=== PATIENT | female | born 1990 | race Caucasian/White ===

== ENCOUNTER → 2016-10-08 13:38 | Observation (INO) ==
[2016-10-08 13:07] LABS: Bilirubin,Urine Negative (Negative); Blood,Urine Negative (Negative); Clarity,Urine Cloudy (Clear); Color,Urine Yellow (Yellow); Glucose,Urine (UA) Normal (Normal); Ketones,Urine Negative (Negative); Leukocyte Esterase,Urine Moderate (Negative); Nitrite,Urine Negative (Negative); Protein,Urine Negative (Neg-Trace); Specific Gravity,Urine 1.016 (1.010-1.025); Urobilinogen,Urine Normal (Normal)
[2016-10-08 13:09] LABS: Bacteria,Urine Few per hpf (None-Few); Hyaline Casts,Urine None Seen per lpf (None-Few); RBC,Urine 0-3 per hpf (0-3); WBC,Urine 15-30 per hpf (0-3)
[2016-10-08 13:27] LABS: Squamous Epithelial Cell,Urine Moderate per lpf (None-Few)
--- NOTE | 2016-10-08 13:32 | Discharge Summary ---
Date of Encounter: 10/08/16 Time of Encounter: 13:32 - Discharge Diagnosis (1) 27 weeks gestation of Priority: Primary Status: Acute Comments: admitted for observation (2) Pain of round ligament affecting , antepartum Priority: Secondary Status: Acute Comments: comfort measures discussed (3) NST (non-stress test) reactive on surveillance Priority: Secondary Status: Acute Comments: baseline 145 bpm moderate variability +15x15 accels no decels noted. No contractions - Discharge Medications Home Medications: Vit Calc,Iron,Folic [ Vitamins] 1 tab PO DAILY 10/08/16 [ History] Allergies/Adverse Reactions: Allergies No Known Allergies Allergy (Verified 10/08/16 12:44) Data Procedures and tests throughout hospitalization: Laboratory Tests 10/08/16 12:51 Urine Color Yellow Urine Clarity Cloudy A Urine pH 6.0 Ur Specific [place] 1.016 Urine Protein Negative Urine Glucose (UA) Normal Urine Ketones Negative Urine Blood Negative Urine Nitrite Negative Urine Bilirubin Negative Urine Urobilinogen Normal Ur Leukocyte Esterase Moderate H Urine Microscopic RBC 0-3 Urine Microscopic WBC 15-30 H Ur Squamous Epith Cells Moderate H Urine Bacteria Few Hyaline Casts None Seen Ur Culture Indicated? YES A Labs on day of discharge: Labs from last 24 hours 10/08/16 12:51 Urine Color Yellow Urine Clarity Cloudy A Urine pH 6.0 Ur Specific [place] 1.016 Urine Protein Negative Urine Glucose (UA) Normal Urine Ketones Negative Urine Blood Negative Urine Nitrite Negative Urine Bilirubin Negative Urine Urobilinogen Normal Ur Leukocyte Esterase Moderate H Urine Microscopic RBC 0-3 Urine Microscopic WBC 15-30 H Ur Squamous Epith Cells Moderate H Urine Bacteria Few Hyaline Casts None Seen Ur Culture Indicated? YES A Date of admission: 10/08/16 12:24 Primary care physician: Eduar Bobo DO Discharging clinician: Beronica Alonzo Anticipated date of discharge: 10/08/16 - Patient Status Disposition: Home, Self-Care Condition: Good Functional capacity at discharge: independent ambulation - Discharge Instructions Follow Up With: Eduar Bobo DO [Primary Care Provider] - Yosef Gao DO [Partnered Physician] - - Diet and Activity Activity: increase activity as tolerated Diet: regular diet Hospital Course MANAGER GALLERY Hospital course: Patient is a 26 y/o at 27 weeks gestation presents to labor and delivery with c/o intermittent sharp lower abdominal pain. Patient reports +FM, Denies LOF, VB or contractions. Time Attestation: Total time spent providing and/or coordinating discharge services: Time Spent: Less than 30 minutes Exam - Constitutional General appearance IM: A&O X 3, pleasant, answers questions appropriately - Respiratory Respiratory exam: Present: CTAB - Cardiovascular Cardiovascular exam IM: Present: RRR, +S1, +S2 - GI/Abdominal GI/Abdominal exam IM: normal bowel sounds - Extremities Exam Extremities exam IM: Present: full ROM, normal capillary refill, normal inspection (FHR 145 bpm moderate variabiity +15x15 accels no decels noted. No contractions. RNST. ) - VTE Reasons for not Prescribing Prophylaxis: Treatment not Indicated - Low risk for VTE
== END | disposition home or self-care (01) ==
LOC: 1NENULAB
PROVIDERS: ADMIT Obstetrics & Gynecology; ATTEND Obstetrics & Gynecology

== ENCOUNTER → 2016-11-27 11:26 | Observation (INO) ==
[2016-11-27 10:28] LABS: Bilirubin,Urine Negative (Negative); Blood,Urine Negative (Negative); Color,Urine Yellow (Yellow); Glucose,Urine (UA) Normal (Normal); Ketones,Urine Negative (Negative); Leukocyte Esterase,Urine Moderate (Negative); Nitrite,Urine Negative (Negative); Protein,Urine Negative (Neg-Trace); Specific Gravity,Urine 1.012 (1.010-1.025); Urobilinogen,Urine Normal (Normal)
[2016-11-27 10:30] LABS: Bacteria,Urine Few per hpf (None-Few); Hyaline Casts,Urine None Seen per lpf (None-Few); RBC,Urine 0-3 per hpf (0-3); Squamous Epithelial Cell,Urine Many per lpf (None-Few)
[2016-11-27 10:35] LABS: Amphetamine Screen,Urine Negative ng/mL (Cutoff=1000); Barbiturate Screen,Urine Negative ng/mL (Cutoff=200); Benzodiazepines Screen,Urine Negative ng/mL (Cutoff=200); Cannabinoid Screen,Urine Negative ng/mL (Cutoff = 50); Cocaine Screen,Urine Negative ng/mL (Cutoff= 300); Opiate Screen,Urine Negative ng/mL (Cutoff=300); Phencyclidine Screen,Urine Negative ng/mL (Cutoff=25)
[2016-11-27 10:36] LABS: Clarity,Urine Slightly Hazy (Clear)
--- NOTE | 2016-11-27 10:47 | OB/GYN Progress Note ---
Date of Encounter: 11/27/16 Time of Encounter: 10:44 - Assessment and Plan (1) 34 weeks gestation of Current Visit: Yes Status: Acute (2) Decreased movement affecting management of mother, antepartum Current Visit: Yes Status: Acute NST reactive. Pt feeling movement in triage. Kick counts discussed. Qualifiers: Fetus number: single or unspecified fetus Qualified Code(s): O36.8190 - Decreased movements, unspecified trimester, not applicable or unspecified (3) NST (non-stress test) reactive on surveillance Current Visit: No Status: Acute (4) uterine contractions in third trimester, antepartum Current Visit: Yes Status: Acute Pt reports contractions every 15-20 minutes. SVE closed and thick. Hydration discussed. Discharge home with precautions. Subjective - Subjective Interval history: 26 year-old presenting at 34 weeks 2days with c/o decreased movement and contractions. She reports the contractions started around 0500 this am when she got up for work. She states they occur about every 15-20 minutes and are quite painful. She also reports urinary frequency and urgency. She denies dysuria but reports some back pain and feeling like she might have had a fever over the weekend. No other complaints. Antepartum ROS: contractions, no loss of fluid, no vaginal bleeding, no movement normal Objective - Vital Signs Vital Signs: Intake and Output 11/26/16 11/27/16 11/27/16 23:59 07:59 15:59 Other: Weight 77 kg Patient Weight 11/27/16 23:59 Weight 77 kg - Exam FHR: category 1 FHR comments: NST reactive Abdomen: Present: soft, gravid, tenderness (suprapubic tenderness, manager managed backup services to palpation throughout) Uterus: Absent: tenderness Cervical dilation: closed Cervix effacement: thick station: high - Labs Labs: Abnormal lab results Ur Leukocyte Esterase Moderate (Negative) H 11/27/16 10:05
[2016-11-27 10:48] LABS: Amorphous Sediment,Urine Few (Few)
== END | disposition home or self-care (01) ==
LOC: 1NENULAB
PROVIDERS: ADMIT Obstetrics & Gynecology; ATTEND Obstetrics & Gynecology

== ENCOUNTER → 2016-12-20 16:00 | Observation (INO) ==
[2016-12-20 15:03] LABS: Amphetamine Screen,Urine Negative ng/mL (Cutoff=1000); Barbiturate Screen,Urine Negative ng/mL (Cutoff=200); Benzodiazepines Screen,Urine Negative ng/mL (Cutoff=200); Cannabinoid Screen,Urine Negative ng/mL (Cutoff = 50); Cocaine Screen,Urine Negative ng/mL (Cutoff= 300); Opiate Screen,Urine Negative ng/mL (Cutoff=300); Phencyclidine Screen,Urine Negative ng/mL (Cutoff=25)
--- NOTE | 2016-12-20 15:41 | OB/GYN Progress Note ---
Date of Encounter: 12/20/16 Time of Encounter: 15:39 - Assessment and Plan (1) 37 weeks gestation of Current Visit: Yes Status: Acute Admit for labor evaluation (2) Uterine contractions during Current Visit: Yes Status: Acute Labor evaluation monitoring. Subjective - Subjective Principal diagnosis: Contractions, 37w0d Interval history: Connie is a at 37w0d who presented to the unit with complaint of contractions for several days. Reports 2-3 contractions in an hour. SVE 2 cm on arrival. Reports positive movement, denies vaginal bleeding or leakage of fluid. Reports she believes she lost her mucous plug. Antepartum ROS: movement normal, contractions, no loss of fluid, no vaginal bleeding Objective - Vital Signs Vital Signs: Intake and Output 12/19/16 12/20/16 12/20/16 23:59 07:59 15:59 Other: Weight 77.5 kg Patient Weight 12/20/16 23:59 Weight 77.5 kg - Exam FHR: auscultation normal, category 1 Auscultation: bilateral: normal Abdomen: Present: normal appearance, soft Uterus: Present: normal Cervical dilation: 2 Comments: per RN
--- NOTE | 2016-12-20 16:05 | Discharge Summary ---
Date of Encounter: 12/20/16 Time of Encounter: 16:04 - Discharge Diagnosis (1) 37 weeks gestation of Priority: Primary Status: Acute Comments: admitted for observation (2) Uterine contractions during Priority: Secondary Status: Acute Comments: labor evaluation no cervical change RNST (3) NST (non-stress test) reactive on surveillance Priority: Secondary Status: Acute Comments: baseline 135 bpm moderate variability +15x15 accels no decels noted. - Discharge Medications Home Medications: Vit Calc,Iron,Folic [ Vitamins] 1 tab PO DAILY 10/08/16 [ History] Allergies/Adverse Reactions: 3 Allergy/AdvReac Type Severity Reaction Status Date / Time No Known Allergies Allergy Verified 11/27/16 09:54 Data Procedures and tests throughout hospitalization: Laboratory Tests 12/20/16 14:30 Urine Opiates Screen Negative Ur Barbiturates Screen Negative Ur Phencyclidine Scrn Negative Ur Amphetamines Screen Negative U Benzodiazepines Scrn Negative Urine Cocaine Screen Negative U Marijuana (THC) Screen Negative Labs on day of discharge: Labs from last 24 hours 12/20/16 14:30 Urine Opiates Screen Negative Ur Barbiturates Screen Negative Ur Phencyclidine Scrn Negative Ur Amphetamines Screen Negative U Benzodiazepines Scrn Negative Urine Cocaine Screen Negative U Marijuana (THC) Screen Negative Date of admission: 12/20/16 14:23 Primary care physician: Eduar Bobo DO Discharging clinician: Beronica Alonzo Anticipated date of discharge: 12/20/16 - Patient Status Disposition: Home, Self-Care Condition: Good Functional capacity at discharge: independent ambulation - Discharge Instructions Follow Up With: Eduar Bobo DO [Primary Care Provider] - Additional Instructions: LABOR AND DELIVERY DISCHARGE INSTRUCTIONS Signs and Symptoms to be Reported to your Doctor Immediately: * Sudden gush, continuous or intermittent lead of fluid from vagina (note the time of gush and color of fluid) * Onset of bright red vaginal bleeding with or without pain (if you had a vaginal exam during this visit you may notice some dark red spotting. This is normal.) * Contractions that are 5 minutes apart (from the beginning of one contraction to the beginning of the next) and last 45-60 seonds; contractions that you can no longer walk, talk or laugh through. * A change in the baby's activity. This could be an increase or decrease in activity. * Severe headache which does not go away with tylenol. * Sudden swelling in the face, hands, arms and/or legs. * Upper abdominal pain - sometimes associated with heartburn or nausea and is not relieved by Maalox, Mylanta or Tums. * Kick Counts __ One hour after a meal, lay down on one side in a quiet place. Count the number of time the baby moves during an hour. 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 Cat. 1 tracing Irregular contractions
== END | disposition home or self-care (01) ==
LOC: 1NENULAB
PROVIDERS: ADMIT Obstetrics & Gynecology; ATTEND Obstetrics & Gynecology

== ENCOUNTER 2016-12-23 09:03 | Inpatient (IN) ==
[2016-12-23 06:32] LABS: Amphetamine Screen,Urine Negative ng/mL (Cutoff=1000); Barbiturate Screen,Urine Negative ng/mL (Cutoff=200); Benzodiazepines Screen,Urine Negative ng/mL (Cutoff=200); Cannabinoid Screen,Urine Negative ng/mL (Cutoff = 50); Cocaine Screen,Urine Negative ng/mL (Cutoff= 300); Opiate Screen,Urine Negative ng/mL (Cutoff=300); Phencyclidine Screen,Urine Negative ng/mL (Cutoff=25)
[2016-12-23 08:33] LABS: Basophils % 0.4 %; Eosinophils # 0.2 K/mcL (0.0-0.6); Hematocrit 36.5 % (35.3-44.9); Hemoglobin 12.6 g/dL (11.5-15.4); Immature Granulocytes % 0.4 % (0-4); Lymphocytes # 1.5 K/mcL (0.6-4.6); Lymphocytes % 12.9 %; Mean Corpuscular HGB Conc 34.5 g/dL (31.6-35.5); Mean Corpuscular Hemoglobin 30.2 pg (28.0-33.3); Mean Corpuscular Volume 87.5 fL (83.0-100.0); Mean Platelet Volume 10.3 fL (9.4-12.4); Monocytes # 0.8 K/mcL (0.0-1.3); Monocytes % 6.8 %; Neutrophils # 8.8 K/mcL (1.6-8.9); Platelet Count 247 K/mcL (140-400); Red Blood Count 4.17 M/mcL (3.82-4.97); Red Cell Distribution Width 13.1 % (11.5-14.5); Segmented Neutrophils % 77.5 %
--- NOTE | 2016-12-23 08:54 | OB/GYN History & Physical ---
Date of Encounter: 12/23/16 Time of Encounter: 08:52 Assessment and Plan (1) 38 weeks gestation of Current visit: Yes Status: Acute labor order placed, ok for epidural, FHT CAT 1, anticipate History of Present Illness HPI: Ms. Tsang is a 26 year old female @38 weeks who presents to L&D in labor , she does not report LOF, VB or ctxs, GBS neg Past Med Surg Social Fam HX - Past Medical History Medical history: no medical history Psychiatric history: no psych history - Past Surgical History Surgical History: other - Social History Smoking Status: Never smoker Smokeless Tobacco Status: No Alcohol use: none Drug use: none - Family History Mother Adopted: No Family Member Ethnicity: Non- Living Status: Still Living Hx Family Cardiac Disorders: No Hx Family Respiratory Disorders: No Hx Family Cancer: No Hx Family GI Disorders: No Hx Family Endocrine Disorder: No Hx Family Neuromuscular Disorders: No Hx Family Neurologic Disorders: No Hx Family HEENT Disorders: No Hx Family Autoimmune Disorders: No Obstetrical History - Pregnancies : 2 Term: 1 Livin Medications and Allergies Vit Calc,Iron,Folic [ Vitamins] 1 tab PO DAILY 10/08/16 [ History] 3 Allergy/AdvReac Type Severity Reaction Status Date / Time No Known Allergies Allergy Verified 12/23/16 06:12 Review of System OB All systems PM: reviewed and no additional remarkable complaints except as stated Exam - Constitutional Constitutional: well developed - HEENT HEENT: PERRL - Neck Neck exam: full ROM - Lungs Respiratory exam: CTAB - Cardiovascular Cardiovascular exam: RRR - Abdomen Abdomen: Present: gravid - Cervix Dilation: 5 Effacement: 90 Results Result Diagrams: 12/23/16 08:20 Abnormal lab results WBC 11.3 K/mcL (4.3-11.1) H 12/23/16 08:20 All other labs normal.
[~2016-12-23 09:03] MED LIST: Famotidine 20 MG/2 ML VIAL IVP PRN; Naloxone 0.4 MG/ML INJ IVP PRN; Ringers Solution, Lactated 1,000 ML IVC SCH; Ringers Solution, Lactated 1,000 ML ONE
[2016-12-23] MEDS ORDERED: Bupivacaine-MPF 0.25% 10 ML VIAL ONE (09:18)
[2016-12-23] MEDS ORDERED: *HR* FentaNYL (PF) 100 MCG/2 ML VIAL ONE (09:19)
[2016-12-23] MEDS ORDERED: Epidural Premix (fent/bupiv) 110 ML EP ONE (09:21)
[2016-12-23] MEDS ORDERED: EPHEDrine 50 MG/ML VIAL IVP PRN (09:23)
[2016-12-23] MEDS ORDERED: *HR* FentaNYL (PF) 100 MCG/2 ML VIAL EP ONE (09:23)
[2016-12-23] MEDS ORDERED: Naloxone 0.4 MG/ML INJ IVP PRN (09:23)
[2016-12-23] MEDS ORDERED: Bupivacaine-MPF 0.25% 10 ML VIAL EP ONE (09:23)
[2016-12-23] MEDS ORDERED: Ondansetron 4 MG/2 ML VIAL IVP PRN (09:23)
[2016-12-23] MEDS ORDERED: Epidural Premix (fent/bupiv) 110 ML EP SCH (09:30)
--- NOTE | 2016-12-23 09:31 | Anesthesia Evaluation PreOp ---
Date of Encounter: 12/23/16 Time of Encounter: 09:25 - Past History Planned Operation: KAMALJIT Cardiac History: Denies any Significant Hx Pulmonary History: Denies Any Significant HX DIRECTOR GOVERNMENT History: Denies Any Significant HX Other Medical History: Denies Any Significant HX Anesthesia History: No Prior Anesthetic Complications, Past Anesthesia (wisdom teeth) : Yes Alcohol Use: none Drug use: none Medications and Allergies Vit Calc,Iron,Folic [ Vitamins] 1 tab PO DAILY 10/08/16 [ History] 3 Allergy/AdvReac Type Severity Reaction Status Date / Time No Known Allergies Allergy Verified 12/23/16 06:12 - Meds/Allergy Pre-op Review Medications Reviewed: Yes Allergies Reviewed: Yes Beta Blockers on Current Med List: No Anesthesia Results - Labs 12/23/16 08:20 Anesthesia Exam T 97.3 BP 128/63 P 68 R 18 Height: 5'5" Weight: 78.2 NPO (# of Hours): 12hrs solids, 0 clears Pain Scale: 10 Pain Scale Used: Numeric (1 - 10) - HEENT Pupil (Motor): Pupils equal Mallampati: II Teeth: Normal Oral Opening: Greater than 3 - DIRECTOR GOVERNMENT LOC: Oriented DIRECTOR GOVERNMENT Motor: Normal RUE, Normal LUE, Normal RLE, Normal LLE, Normal Face DIRECTOR GOVERNMENT Sensory: Normal: RUE, LUE, RLE, LLE, Face - Cardiac Rhythm: Regular Murmur: None JVD: No Carotid Bruit: No - Pulmonary Breath Sounds: bilateral Clear Respiratory Effort: Symmetrical Anesthesia Assess/Plan ASA Score: 2 Modified [place] Scale for Level of Consciousness: Cooperative, oriented, and tranquil Anesthetic Plan: Regional Autologous Blood: No Monitoring Plan: Standard Monitors Recovery Plan: Other
--- NOTE | 2016-12-23 10:24 | Anesthesia Procedures ---
Date of Encounter: 12/23/16 Time of Encounter: 09:25 Procedures: Anesthesia - Epidural/Spinal Patient ID/Chart reviewed: Yes Patient examined: Yes OB Eval: Gestational age: 38 OB Eval: : 2 OB Eval: Hx Para: 1 OB Eval: Dilated at (cm): 5 OB Eval: Contractions: Non-stressed pattern Consent Obtained: Yes Supplemental Oxygen: None/Room Air Site Prep: Aseptic Technique, Sterile prep and drape, Povidone-Iodine 1% Patient position: upright Local Anesthetic: Lidocaine 1% Amount of Local Anesthetic used: 3 Touhy Needle Gauge: 18 Touhy Needle Depth (cm): 6 Catheter Depth at Skin (cm): 15 Test Dose (1.5% Lido + Epi): Volume given (mls): 3 Test Dose Result: Negative Loading Dose: 0.25% Marcaine (mls): 10 Loading Dose: Fentanyl (mcg): 100 Loading Dose Administered: Thru Catheter Infusion Med: 0.125% Bupivacaine w/ 2 mcg/ml Fentanyl Infusion Rate (mls/hr): [address]: Tegaderm, Tape Interspace Used: L4-L5 Loss of Resistance (DEBRA): Yes Blood: No CSF: No Paresthesia: No Procedure: KAMALJIT placed 1st pass, heme positive. 2nd pass no heme. No immediate complications noted. Test dose negative. VSS and FHT stable throughout. Vitals + FHT's: 0925 BP 128/63 P 68 R 18 1012 BP 107/69 P 79 R 16 FHT 130s
--- NOTE | 2016-12-23 12:57 | OB Labor Progress Note ---
Date of Encounter: 12/23/16 Time of Encounter: 12:55 Labor Progress Note - Subjective Subjective: patient doing well - Vital Signs Vital Signs: VSS - Cervix Cervix: 90 - Heart Tones Heart Tones: FHT CAT 1 - Bastian Bastian: irreg - Plan Plan: patient AROM'ed, mec stained anticipate ,
[2016-12-23] MEDS ORDERED: Oxytocin 20 units/ LR 1000 mL 20 UNIT/1,000 ML BAG IVC ONE (14:23)
--- NOTE | 2016-12-23 14:37 | OB Labor Progress Note ---
Date of Encounter: 12/23/16 Time of Encounter: 14:35 Labor Progress Note - Subjective Subjective: patient doing well - Vital Signs Vital Signs: VSS - Cervix Cervix: fully dilated - Heart Tones Heart Tones: FHT CAT 1 - Plan Plan: anticipate
--- NOTE | 2016-12-23 15:28 | OB/GYN Procedure Note ---
Delivery - Delivery Date: 12/23/16 Provider: Antonino Steward Intrapartum events: meconium Delivery augmentation: rupture of membranes Delivery monitor: external FHT Anesthesia: epidural Estimated Blood Loss: 150 - (s) A Delivery Date: 12/23/16 Delivery Time: 14:55 Presentation: vertex Position: LIA Gender: Female Viability: Viable Pounds: 6 Ounces: 6 Weight Gram: 2895 kg at 1 minute: 8 at 5 mins: 9 Placenta: spontaneous Cord: nuchal cord - Repair Episiotomy: none Laceration Description: Labial, Superficial - Comments Comments: 26 y/o now delivered a viable female @ 1459hrs, nuchal cord x 1 reduced without difficulty, infant delivered LIA, placenta delivered @ 1503 hrs , APGARS 8/9, EBL 150, weight 2895g, 6lbs, 6oz, right superficial labial laceration repaired with 3- 0 vicryl, mother and infant stable.
[2016-12-23] MEDS ORDERED: Measles/Mumps/Rubella Vacc 0.5 ML VIAL SQ PRN (15:33)
[2016-12-23] MEDS ORDERED: Oxytocin 20 units/ LR 1000 mL 20 UNIT/1,000 ML BAG IVC SCH (15:45)
[2016-12-23] MEDS: Ibuprofen 600 MG TABLET PO PRN (19:51)
[2016-12-23] MEDS ORDERED: Menthol 9.1 MG LOZENGE PO PRN (19:59)
[2016-12-24 05:51] LABS: Basophils % 0.2 %; Eosinophils # 0.1 K/mcL (0.0-0.6); Eosinophils % 0.8 %; Hematocrit 34.5 % (35.3-44.9); Hemoglobin 11.8 g/dL (11.5-15.4); Immature Granulocytes % 0.4 % (0-4); Lymphocytes # 1.9 K/mcL (0.6-4.6); Mean Corpuscular HGB Conc 34.2 g/dL (31.6-35.5); Mean Corpuscular Hemoglobin 30.3 pg (28.0-33.3); Mean Corpuscular Volume 88.5 fL (83.0-100.0); Mean Platelet Volume 10.7 fL (9.4-12.4); Monocytes # 1.1 K/mcL (0.0-1.3); Monocytes % 6.9 %; Neutrophils # 12.8 K/mcL (1.6-8.9); Platelet Count 212 K/mcL (140-400); Red Cell Distribution Width 13.2 % (11.5-14.5); Segmented Neutrophils % 79.7 %
--- NOTE | 2016-12-24 07:32 | OB/GYN Progress Note ---
Date of Encounter: 12/24/16 Time of Encounter: 07:30 - Assessment and Plan (1) Status post normal vaginal delivery Current Visit: Yes Status: Acute (2) Family planning Current Visit: Yes Status: Acute Patient will be scheduled for bilateral partial salpingectomy this morning Subjective - Subjective Interval history: Patient is doing well this morning minimal pain minimal bleeding still desires tubal ligation. The risks and benefits of tubal ligation which point the patient with a failure rate of 5-8 per thousand with increased risk of ectopic if was to occur. Patient still wants to proceed she has been nothing by mouth since midnight Patient reports: appetite normal, voiding normally, pain well controlled, ambulating normally [place]: doing well Objective - Latest Vital Signs Latest vital signs: Vital Signs Temp Pulse Pulse Resp BP Pulse Ox 12/24/16 04:20 98.0 F 65 65 16 107/70 98 12/23/16 19:46 16 12/23/16 19:45 97.9 F 87 16 114/78 96 12/23/16 18:49 98.0 F 66 20 124/76 98 12/23/16 17:45 98.1 F 72 16 128/85 98 Intake and Output 12/23/16 12/23/16 12/24/16 15:59 23:59 07:59 Intake Total 0 / 0 0 / 0 Output Total 1100 / 1100 700 / 700 Balance -1100 / -1100 -700 / -700 Intake: Oral 0 / 0 0 / 0 Output: Urine 1100 / 1100 700 / 700 Other: Weight 77.4 kg 75.7 kg Patient Weight 12/24/16 23:59 Weight 75.7 kg - Exam Lungs: bilateral: normal Chest: Normal S1, Normal S2 Extremities: Present: normal Abdomen: Present: normal appearance Uterus Position: At Umbilicus - Labs Labs: Laboratory Results - last 24 hr 12/23/16 12/24/16 08:20 04:40 WBC 11.3 H 16.0 H RBC 4.17 3.90 Hgb 12.6 11.8 Hct 36.5 34.5 L MCV 87.5 88.5 MCH 30.2 30.3 MCHC 34.5 34.2 RDW 13.1 13.2 Plt Count 247 212 MPV 10.3 10.7 Immature Gran % 0.4 0.4 Seg Neutrophils % 77.5 79.7 Lymphocytes % 12.9 12.0 Monocytes % 6.8 6.9 Eosinophils % 2.0 0.8 Basophils % 0.4 0.2 Neutrophils # 8.8 12.8 H Lymphocytes # 1.5 1.9 Monocytes # 0.8 1.1 Eosinophils # 0.2 0.1 Basophils # 0.0 0.0
[2016-12-24] MEDS ORDERED: CeFAZolin Pre 2,000 MG/100 ML 2,000 MG/100 ML BAG IVPB ONE (07:33)
--- NOTE | 2016-12-24 08:57 | Anesthesia Evaluation PreOp ---
Date of Encounter: 12/24/16 Time of Encounter: 08:55 - Past History Planned Operation: Bilateral Partial Salpingectomy Cardiac History: Denies any Significant Hx Pulmonary History: Denies Any Significant HX SUPERVISOR ELECTRIC History: Denies Any Significant HX Other Medical History: Other (post- day 1) Anesthesia History: Past Anesthesia (no prior GA) Alcohol Use: none Drug use: none Medications and Allergies Vit Calc,Iron,Folic [ Vitamins] 1 tab PO DAILY 10/08/16 [ History] 3 Allergy/AdvReac Type Severity Reaction Status Date / Time No Known Allergies Allergy Verified 12/23/16 06:12 - Meds/Allergy Pre-op Review Medications Reviewed: Yes Allergies Reviewed: Yes Beta Blockers on Current Med List: No Anesthesia Results - Labs 12/24/16 04:40 Anesthesia Exam Vital Signs/O2 Sat, Most Current Temp Pulse Resp BP Pulse Ox 98.0 F 68 16 125/82 98 12/24/16 07:30 12/24/16 07:30 12/24/16 07:37 12/24/16 07:30 12/24/16 04:20 Height: 5'5''/1.65 m Weight: 166 lbs/75.7 kg NPO (# of Hours): 8 Pain Scale: 0 Pain Scale Used: Numeric (1 - 10) - HEENT Pupil (Motor): EOMI Mallampati: II Teeth: Normal Oral Opening: Greater than 3 - SUPERVISOR ELECTRIC LOC: Oriented SUPERVISOR ELECTRIC Motor: Normal RUE, Normal LUE, Normal RLE, Normal LLE, Normal Face SUPERVISOR ELECTRIC Sensory: Normal: RUE, LUE, RLE, LLE, Face - Cardiac Rhythm: Regular Murmur: None - Pulmonary Breath Sounds: bilateral Clear Respiratory Effort: Symmetrical Anesthesia Assess/Plan ASA Score: 2 Modified [place] Scale for Level of Consciousness: Cooperative, oriented, and tranquil Anesthetic Plan: General Monitoring Plan: Standard Monitors Recovery Plan: PACU
[2016-12-24] MEDS ORDERED: Prenatal Vit/FA 1 EACH TABLET PO SCH (09:00)
[2016-12-24] MEDS ORDERED: *HR* FentaNYL (PF) 100 MCG/2 ML VIAL ONE (11:49)
[2016-12-24] MEDS ORDERED: Ondansetron 4 MG/2 ML VIAL ONE (11:49)
[2016-12-24] MEDS ORDERED: *HR* Propofol 200 MG/20 ML VIAL IVP ONE (11:49)
[2016-12-24] MEDS ORDERED: Lidocaine -MPF 2% 5 ML VIAL ONE (11:49)
[2016-12-24] MEDS ORDERED: Dexamethasone 4 MG/ML VIAL ONE (11:49)
[2016-12-24] MEDS ORDERED: *HR* Succinylcholine 200 MG/10 ML VIAL IVP ONE (11:49)
[2016-12-24] MEDS ORDERED: *HR* Midazolam HCl 2 MG/2 ML VIAL ONE (11:49)
[2016-12-24] MEDS ORDERED: Ondansetron 4 MG/2 ML VIAL IVP ONE (12:30)
[2016-12-24] MEDS ORDERED: Ketorolac 30 MG/ML VIAL ONE (12:37)
[2016-12-24] MEDS ORDERED: Neostigmine Methylsulfate 3 MG/3 ML SYRINGE ONE (12:39)
--- NOTE | 2016-12-24 12:57 | Operative Note ---
Date of procedure: 12/24/16 Pre-op diagnosis: Status post vaginal delivery, desires sterilization Post-op diagnosis: same Procedure: Bilateral partial salpingectomy Anesthesia: RAMESHA Surgeon: Yosef Gao Natural Science Curator: Shanice Hopkins ([id number]) Estimated blood loss (cc): 20 Specimen: portions of Right and left fellopian tube Condition: stable Disposition: other Procedure in Detail: Patient is a 26-year-old 2 para 2 status post vaginal delivery who desired tubal ligation. Patient states has 2 children and desires no more. The risks and benefits of a tubal ligation were explained to patient with failure rate of 5-8 per thousand with increased risk of ectopic if was to occur. Procedure: Patient was taken the operating room where general anesthesia was found adequate. She was placed in dorsal supine position prepped and draped in usual fashion. An infraumbilical incision was made with a scalpel carried down through the tissue until the fascia was identified. Fascia was nicked in midline extended laterally with Koroma scissors. The tissue was extended laterally parietal peritoneum was identified tented up and entered sharply. 2 [place] retractors were then placed through the incision the right fallopian tube was identified grasped and brought up through the incision followed out to the fimbriated end. At the ampullar region a 2 cm portion of tube was suture ligated with 0 chromic 2 that was excised. This was returned to the abdomen and attention was then turned to the opposite side. A similar fashion the tube was identified grasped and brought up through the incision followed to the fimbriated end. At the ampullary region a 2 cm portion of the tube was suture ligated with oh plain 2. This knuckle was excised. Hemostasis noted and then the tube was returned to the abdomen. The fascia was then closed using 0 Vicryl in a running stitch, skin was then closed using a 4-0 Vicryl in a subcuticular manner. All needles laps and sponge counts were correct 3 She Did Receive Preoperative Antibiotics.
[2016-12-24] MEDS: *HR* Morphine 2 MG/ML SYRINGE IVP PRN ×2 (13:13→13:40)
[2016-12-24] MEDS: Ibuprofen 600 MG TABLET PO PRN (14:14)
[2016-12-24] MEDS ORDERED: Ringers Solution, Lactated 1,000 ML IVC SCH (14:18)
[2016-12-24] MEDS ORDERED: *HR* HYDROcodone/Acet 5/325 mg TABLET PO ONE (15:11)
[2016-12-24] MEDS ORDERED: *HR* HYDROcodone/Acet 5/325 mg TABLET PO PRN (17:52)
[2016-12-25 07:49] VITALS: BP 124/80
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
[2016-12-25] MEDS ORDERED: Prenatal Vit/FA 1 EACH TABLET PO SCH (09:00)
== END 2016-12-25 12:00 | disposition home or self-care (01) | DRG 541 ==
LOC: 1NENULAB → 1NENUOBS 17:46
PROVIDERS: ADMIT Obstetrics & Gynecology; ATTEND Obstetrics & Gynecology